=== PATIENT | male | born 1985 | race Caucasian/White ===

== ENCOUNTER 2018-08-28 09:07 | Emergency (ER) | payer BC ==
[2018-08-28] MEDS: GI Cocktail Oral Solution 30 ML PO ONE (09:25)
--- NOTE | 2018-08-28 09:28 | EDM.PDOC ---
ED HPI GENERAL MEDICAL PROBLEM - General Chief Complaint: Gastrointestinal Problem Stated Complaint: difficulty swallowing food Time Seen by Provider: 08/28/18 09:20 Source of Information: Reports: Patient, RN History Limitations: Reports: No Limitations - History of Present Illness INITIAL COMMENTS - FREE TEXT/NARRATIVE: 32 yr old male presents to the ER with feeling like food is stuck and unable to keep food down. States water won't stay down. Pt is up here fishing from [place], [place]. He is with his dad. No allergies, no regular medications. He does have acid reflux frequently and takes Zantac for this. He doesn't have with him. States his Dad and Grandfather have had strictures and had to have the esophagus dilated. No respiratory distress. No diaphoresis. States he had some leonard and egg and no bread with this. He has tried vomitting with no relief. ED ROS GENERAL - Review of Systems Review Of Systems: See Below Constitutional: Reports: No Symptoms HEENT: Reports: No Symptoms Respiratory: Reports: No Symptoms Cardiovascular: Reports: No Symptoms GI/Abdominal: Reports: Difficulty Swallowing. Denies: Abdominal Pain, Nausea : Reports: No Symptoms Musculoskeletal: Reports: No Symptoms Skin: Reports: No Symptoms Neurological: Reports: No Symptoms Psychiatric: Reports: No Symptoms Hematologic/Lymphatic: Reports: No Symptoms Immunologic: Reports: No Symptoms ED EXAM, GI/ABD - Physical Exam Exam: See Below Exam Limited By: No Limitations General Appearance: Alert, No Apparent Distress Ears: Hearing Grossly Normal Nose: Normal Inspection Throat/Mouth: Normal Inspection, Normal Oropharynx, Normal Voice, No Airway Compromise Head: Atraumatic, Normocephalic Neck: Normal Inspection Respiratory/Chest: No Respiratory Distress, Lungs Clear, Normal Breath Sounds Cardiovascular: Regular Rate, Rhythm GI/Abdominal Exam: Soft, Non-Tender Neurological: Alert, Oriented, Normal Cognition Psychiatric: Normal Affect, Normal Mood Skin Exam: Warm, Dry, Normal Color Lymphatic: No Adenopathy Course - Vital Signs Last Recorded V/S: Last Vital Signs Temp 98.2 F 08/28/18 09:15 Pulse 95 08/28/18 09:15 Resp 16 08/28/18 09:15 BP 155/104 H 08/28/18 09:15 Pulse Ox 97 08/28/18 09:15 - Re-Assessments/Exams Free Text/Narrative Re-Assessment/Exam: 08/28/18 09:55 Pt did try to vomit and minimal amount of clear fluid. GI cocktail given and pt taking sips of this and water. After this, pt had relief and felt food go down and he took some water with no difficulty. Will discharge to care of parent in no acute distress. Recommend F/U with PCP when return home. Recommend Zantac bid and Mylanta tid as needed, after eating. Recommend to chew food thoroughly before swallowing. Departure - Departure Time of Disposition: 09:54 Disposition: Home, Self-Care 01 Condition: Good Clinical Impression: Difficulty swallowing - Discharge Information *COPY OF PRESCRIPTION DRUG MONITORING REPORT IN PATIENT JANI: Not Applicable Referrals: PCP,None [Primary Care Provider] - Forms: ED Department Discharge Care Plan Goals: Encouraged to buy some OTC Zantac and take 2 times a day or prilosec and take 1 time a day. Follow up with primary proviider in hometown. - Assessment/Plan Plan: Will discharge to care of parent in no acute distress. Recommend F/U with PCP when return home. Recommend Zantac bid and Mylanta tid as needed, after eating. Recommend to chew food thoroughly before swallowing.
== END 2018-08-28 09:45 | disposition home or self-care (01) ==
LOC: LB.ED 09:07
DX: R13.10 Dysphagia, unspecified (principal)
CPT/HCPCS: 99283; A9270-GY